=== PATIENT | female | born 1995 | race Caucasian/White ===

== ENCOUNTER → 2019-04-28 13:02 | Outpatient (CLI) | payer OTHER, SELFPAY ==
[2019-04-28 13:28] LABS: Basophils % 0.7 % (0.1-2.0); Eosinophils # 0.1 K/mm3 (0.0-0.4); Eosinophils % 1.1 % (0.1-12.0); Hematocrit 43.9 % (37.0-47.0); Hemoglobin 14.1 g/dL (12.2-16.2); Lymphocytes # 2.1 K/mm3 (0.7-4.5); Lymphocytes % 42.2 % (10-50); Mean Corpuscular Hemoglobin 29.8 pg (27.0-31.2); Mean Corpuscular Volume 93.1 fl (81-99); Mean Platelet Volume 7.5 fl (7.4-10.4); Monocytes # 0.2 K/mm3 (0.1-1.0); Monocytes % 4.8 % (1.7-9.3); Neutrophils # 2.6 K/mm3 (1.8-7.8); Neutrophils % 51.2 % (37.0-80.0); Platelet Count 302 K/mm3 (142-424); Red Blood Count 4.72 M/mm3 (4.20-5.40); Red Cell Distribution Width 12.7 % (11.5-17.5)
== END ==
PROVIDERS: Visit Provider Otolaryngology
DX: R59.9 Enlarged lymph nodes, unspecified (principal)
CPT/HCPCS: 36415; 85025

== ENCOUNTER → 2019-06-14 12:31 | Outpatient (CLI) | payer OTHER, SELFPAY ==
--- NOTE | 2019-06-14 12:40 | CT_ITS ---
PROCEDURE: CT SOFT TISSUE NECK W CON CLINICAL HISTORY: Cyst of neck Left-sided neck cyst COMPARISON: No exams were available for comparison TECHNIQUE: Oral Contrast: None IV Contrast: 75 mL Optiray 350 Axial images obtained with sagittal and coronal reformats. All CT scans at the facility use one or more dose reduction, viz: automated exposure control, ma/kV adjustment per patient size (including targeted exams where dose is matched to indication, i.e. head), or iterative reconstruction technique. FINDINGS: A marker is placed over the palpable abnormality. Just deep to the placed marker which is along the left sternocleidomastoid muscle is a prominent external jugular vein. No suspicious masses are evident. No adenopathy. The sternocleidomastoid muscle is also just deep to the placed marker. There are few scattered shotty lymph nodes throughout the neck. The parotid glands and submandibular glands are unremarkable. No aneurysm abscess or soft tissue mass apparent. No acute bony anomalies. IMPRESSION: The there is a mildly prominent external jugular vein just deep to the placed BB in the left neck which acosta the palpable abnormality. No abscess, cyst, mass, or adenopathy. Dictated by: Godwin Rebolledo MD 06/14/2019 18:54 Signed by: <Electronically signed by Godwin Rebolledo MD in [place]> 06/14/2019 18:54
[2019-06-14 12:46] LABS: Blood Urea Nitrogen 5 mg/dL (7-18); Creatinine,Serum 0.61 mg/dL (0.55-1.02); Estimated Glomerular Filt Rate 123 ml/min (>60); GFR (African American) 148 ML/MIN (>60)
== END ==
PROVIDERS: Visit Provider Otolaryngology
DX: R22.1 Localized swelling, mass and lump, neck (principal); R59.0 Localized enlarged lymph nodes
CPT/HCPCS: 36415; 70491; 82565; 84520; Q9967

== ENCOUNTER 2024-01-09 10:12 | Outpatient (CLI) | payer BC, SELFPAY ==
--- NOTE | 2024-01-09 11:30 | PC.NURSE ---
This IBCLC saw this patient 10:20-11:25. Patient delivered a 37 week baby 01/03/2024 vaginally. Patient is on several blood pressure medications r/t pre-e. Patient reports pumping 1 ounce each time she pumps. Patient also reports that she pumps rarely. Plan of Care includes: Changing flange size to 17mm Power pumping daily Plenty of nutritional foods, water Setting a pump schedule for every 2-3 hours Attempting to put to the breast with nipple shield (using syringe/feeding tube if needed) Will follow up next week
== END 2024-01-09 11:25 | disposition home or self-care (01) ==
LOC: OBOUT 10:14 → OB 10:15
PROVIDERS: PCP Family Medicine
DX: Z39.1 Encounter for care and examination of lactating mother (principal)